=== PATIENT | female | born 1990 | race Caucasian/White ===

== ENCOUNTER 2017-03-02 12:00 | Outpatient (CLI) | payer OTHER ==
[~2017-03-02] VITALS: Ht 152.4 cm; Wt 59.1 kg
[2017-03-02 12:20] VITALS: BP 111/74; PULSE 64; TEMP 98.1
[2017-03-02 12:26] VITALS: BP 111/74; PULSE 64; TEMP 98.1
[2017-03-02 13:43] VITALS: BP 108/71; PULSE 67
== END 2017-03-02 13:48 | disposition home or self-care (01) ==
LOC: LDRO 12:00
DX: Z34.03 Encounter for supervision of normal first pregnancy, third trimester (principal); Z3A.40 40 weeks gestation of pregnancy

== ENCOUNTER 2017-03-02 23:57 | Inpatient (IN) | payer OTHER ==
[~2017-03-02] VITALS: Ht 152.4 cm; Wt 59.5 kg
[2017-03-03] VITALS (44 sets, daily range): BP systolic 97–149; BP diastolic 55–109; PULSE 67–126; TEMP 97.4–99.1
[2017-03-03 01:05] LABS: BASO % 0.2 % (0.0-2.0); EOS % 0.1 % (0-4.0); GRAN # 13.6 (1.4-6.5); GRAN % 85.5 % (42.2-75.2); HEMATOCRIT 40.1 % (37.0-47.0); LYMPH # 1.5 (1.2-3.4); LYMPH % 9.5 % (20.0-51.0); MEAN CELL VOLUME 93 fl (80.0-100.0); MEAN CORPUSCULAR HEMOGLOBIN 32 pg (27.0-31.0); MEAN CORPUSCULAR HGB CONC 35 g/dl (33.0-37.0); MEAN PLATELET VOLUME 11.6 fl (7.4-10.4); MONO # 0.7 (0.1-0.6); MONO % 4.3 % (1.7-9.3); PLATELET COUNT 201 K/mm3 (130-400); RED BLOOD COUNT 4.33 M/mm3 (4.10-5.30); WHITE BLOOD COUNT 15.9 K/mm3 (4.8-10.8)
[2017-03-04 07:00] VITALS: BP 93/53; PULSE 68
[2017-03-04] MEDS ORDERED: IBU800 M1 PO (09:15)
[2017-03-04] MEDS ORDERED: PERCOCET 325 MG1 TA2 PO (09:15)
[2017-03-04 17:26] VITALS: BP 106/69; PULSE 70
[2017-03-04 20:30] VITALS: BP 104/67; PULSE 80; TEMP 98.2
[2017-03-05 06:50] VITALS: BP 107/74; PULSE 70
== END 2017-03-05 12:05 | disposition home or self-care (01) | DRG 775 ==
LOC: LDRO 23:57 → OB 03-03 00:30 → LDR 03-03 00:30 → OB 03-03 11:54
PROVIDERS: Obstetrics & Gynecology
PROC: 10E0XZZ Delivery of Products of Conception, External Approach (ICD-10-PCS; principal; 2017-03-03)
PROC: 0KQM0ZZ Repair Perineum Muscle, Open Approach (ICD-10-PCS; 2017-03-03)
DX: O48.0 Post-term pregnancy (principal); O99.824 Streptococcus B carrier state complicating childbirth; O26.843 Uterine size-date discrepancy, third trimester; O70.1 Second degree perineal laceration during delivery; Z3A.40 40 weeks gestation of pregnancy; Z37.0 Single live birth
CPT/HCPCS: J2540; J2590; J2795; J7120

== ENCOUNTER 2018-11-20 19:10 | Emergency (ER) | payer OTHER ==
[~2018-11-20 19:10] MED LIST: IBU800 M1 PO; PERCOCET 325 MG1 TA2 PO
[2018-11-20 19:27] VITALS: BP 129/87; TEMP 98.2
[2018-11-20] MEDS ORDERED: PRENATAL FORMU1 EAC3 PO (19:42)
[2018-11-20 19:56] LABS: COLLECTION METHOD CLEAN CATCH
[2018-11-20 20:01] LABS: PH 7 (5-8); SQUAMOUS EPITHELIAL None Seen /hpf; URINE APPEARANCE Clear; URINE BACTERIA None Seen /hpf; URINE BILIRUBIN Negative (NEGATIVE); URINE BLOOD 2+ (NEGATIVE); URINE COLOR Colorless; URINE GLUCOSE Negative (NEGATIVE); URINE KETONE Negative (NEGATIVE); URINE LEUKOCYTE ESTERASE Negative (NEGATIVE); URINE NITRATE Negative (NEGATIVE); URINE PROTEIN(semi-quant) Negative (NEGATIVE); URINE RBC 0-2 /hpf; URINE UROBILINOGEN Negative (NEGATIVE)
[2018-11-20 20:43] LABS: BASO % 0.5 % (0.0-2.0); EOS # 0.2 (0.0-0.7); EOS % 2.3 % (0-4.0); GRAN # 3.5 (1.4-6.5); GRAN % 45.4 % (42.2-75.2); HEMATOCRIT 38.5 % (37.0-47.0); HEMOGLOBIN 13.4 g/dl (12.5-16.0); LYMPH # 3.4 (1.2-3.4); LYMPH % 43.7 % (20.0-51.0); MEAN CELL VOLUME 90 fl (80.0-100.0); MEAN CORPUSCULAR HEMOGLOBIN 31 pg (27.0-31.0); MEAN CORPUSCULAR HGB CONC 35 g/dl (33.0-37.0); MEAN PLATELET VOLUME 10.5 fl (7.4-10.4); MONO # 0.6 (0.1-0.6); PLATELET COUNT 305 K/mm3 (130-400); RED BLOOD COUNT 4.28 M/mm3 (4.10-5.30); REDCELL DISTRIBUTION WIDTH-CV 12.6 % (11.5-14.5)
[2018-11-20 20:55] LABS: ALBUMIN 4.2 gm/dL (3.5-5.0); BILIRUBIN,TOTAL 0.6 mg/dL (0.0-1.0); CALCIUM 9.5 mg/dL (8.4-10.2); CREATININE, serum 0.31 (0.52-1.25); POTASSIUM 3.7 mmol/L (3.4-5.0); TOTAL PROTEIN 7.5 gm/dL (6.4-8.2)
[2018-11-20 22:05] VITALS: PULSE 74
== END 2018-11-20 22:05 | disposition home or self-care (01) ==
LOC: COL.ER 19:10
PROVIDERS: Nurse Practitioner
DX: O20.0 Threatened abortion (principal); Z3A.12 12 weeks gestation of pregnancy

== ENCOUNTER → 2018-11-21 | Outpatient (CLI) | payer OTHER ==
[~2018-11-21] MED LIST changes: +PRENATAL FORMU1 EAC3 PO
== END ==
LOC: COL.RAD 08:50
DX: O20.9 Hemorrhage in early pregnancy, unspecified (principal); Z3A.01 Less than 8 weeks gestation of pregnancy

== ENCOUNTER → 2020-01-03 | Outpatient (CLI) | payer OTHER ==
[~2020-01-03] MED LIST changes: +IBU600 MG PO
== END | disposition still patient (30) ==
LOC: ZCOL.LAB
DX: Z20.828 Contact with and (suspected) exposure to other viral communicable diseases (principal)

== ENCOUNTER 2020-01-04 07:05 | Inpatient (IN) | payer OTHER ==
[~2020-01-04] VITALS: Ht 152.4 cm; Wt 66.8 kg
[2020-01-04] VITALS (15 sets, daily range): BP systolic 91–120; BP diastolic 50–89; PULSE 67–102; TEMP 98–98.1
--- NOTE | 2020-01-04 07:00 | NUR ---
PT PRESENTS TO LABOR AND DELIVERY. STATES CONTRACTIONS STARTED YESTERDAY AT 5PM AND HAVE BEEN WORSE SINCE 0230. WATER BROKE ON HER WAY INTO THE HOSPITAL. SVE BY RYDER WITH THICK MECONIUM. PT CRYING BECAUSE SHE WANTS HER EPIDURAL. IV STARTED IN LEFT HAND BY RYDER AND LR INFUSING WITHOUT DIFFICULTY. PT IS GBS POSITIVE AND HAS NKDA-PEN G 5,000,000 UNITS STARTED VIA IV AT 0654. ASSESSMENT STARTED. CONSENT FOR EPIDURAL SIGNED.
[~2020-01-04 07:05] MED LIST changes: -IBU600 MG PO
--- NOTE | 2020-01-04 07:30 | NUR ---
[address] FONTENOT TO LET HER KNOW THE PT IS HERE, SVE, THICK MECONIUM, GBS POSITIVE AND PEN G STARTED. ALSO CALLED Deni LAYNE CRNA, AT 0702 AND HE IS ON HIS WAY FOR EPIDURAL PLACEMENT 07-LINDSEY LUDWIG, HERE FOR EPIDURAL PLACEMENT. PT STRUGGLING TO BREATHE THROUGH CONTRACTIONS. REPOSITIONED PT SITTING UP FOR EPIDURAL 07-SINGLE SHOT EPIDURAL WITH NO ABNORMAL SYMPTOMS OBSERVED OR REPORTED 726-PT SITTING IN BED AFTER LABEL SEWER DONE TAPING EPIDURAL SITE AND SHE STATES SHE IS FEELING PRESSURE. PT GRIMACING AND WHEN ASKED WHAT SHE IS DOING SHE SAYS SHE IS PUSHING. REPOSITIONED PT QUICKLY LYING DOWN 07-SVE COMPLETE/100/+2 AND PT IS BEARING DOWN 07-DR ROJO IN ROOM AND PREPS FOR DELIVERY
--- NOTE | 2020-01-04 07:36 | NUR ---
DR ROJO AT BEDSIDE. PT PUSHING STARTED AT 0734. OF FEMALE AT 0736.
--- NOTE | 2020-01-04 07:40 | NUR ---
SPONTANEOUS DELIVERY OF PLACENTA AT [address] ROJO. PITOCIN STARTED AT 333ML/HR AFTER DELIVERY OF PLACENTA. FUNDUS FIRM WITH MINIMAL BLEEDING OBSERVED. DR ROJO REPAIRING SECOND DEGREE PERINEAL TEAR.
[2020-01-04 08:04] LABS: BASO % 0.3 % (0.0-2.0); EOS % 0.2 % (0-4.0); GRAN # 11.2 (1.4-6.5); GRAN % 82.6 % (42.2-75.2); HEMATOCRIT 40.9 % (37.0-47.0); LYMPH # 1.7 (1.2-3.4); LYMPH % 12.5 % (20.0-51.0); MEAN CELL VOLUME 94 fl (80.0-100.0); MEAN CORPUSCULAR HEMOGLOBIN 32 pg (27.0-31.0); MEAN CORPUSCULAR HGB CONC 34 g/dl (33.0-37.0); MEAN PLATELET VOLUME 11.4 fl (7.4-10.4); MONO # 0.5 (0.1-0.6); MONO % 3.8 % (1.7-9.3); PLATELET COUNT 250 K/mm3 (130-400); RED BLOOD COUNT 4.37 M/mm3 (4.10-5.30); REDCELL DISTRIBUTION WIDTH-CV 12.9 % (11.5-14.5)
--- NOTE | 2020-01-04 08:10 | NUR ---
PT RESTING IN BED HOLDING BABY. DENIES PAIN. CANNOT MOVE LEGS.
--- NOTE | 2020-01-04 09:10 | NUR ---
PT STARTING TO BE ABLE TO FEEL HER TOES BUT CANNOT LIFT HER LEGS YET. FUNDUS FIRM WITH MINIMAL BLEEDING.
--- NOTE | 2020-01-04 10:35 | NUR ---
RIGHT LEG STILL NUMB BUT FEELING IS RETURNING. FUNDUS FIRM WITH MINIMAL BLEEDING.
--- NOTE | 2020-01-04 11:45 | NUR ---
PT TRANSFERRED TO ROOM. ORIENTED TO PLAN OF CARE. ASSESSMENT COMPLETED. ORIENTED TO ROOM WELL.
--- NOTE | 2020-01-04 18:50 | NUR ---
Report recieved. Resting in bed attempting to breastfeed. Updated whiteboard and reviewed POC. Denied questions or concerns.
[2020-01-05 07:30] VITALS: BP 96/65; PULSE 74; TEMP 97.7
--- NOTE | 2020-01-05 09:11 | NUR ---
Initial visit; Parents thanked Tugboat Captain for offering congratulations and blessings for the of their daughter. Tugboat Captain thanked family for choosing [facility].
[2020-01-05] MEDS ORDERED: IBU600 MG PO (13:12)
[2020-01-05 16:36] VITALS: BP 94/65; PULSE 68; TEMP 97.7
[2020-01-05 20:45] VITALS: BP 102/74; PULSE 73; TEMP 98.2
[2020-01-06 07:00] VITALS: BP 100/62; PULSE 76; TEMP 98.1
== END 2020-01-06 13:32 | disposition home or self-care (01) | DRG 807 ==
LOC: LDRO 07:05 → OB 07:15 → LDR 07:15 → OB 10:30
PROVIDERS: Obstetrics & Gynecology; ADMIT Student in an Organized Health Care Education/Training Program
PROC: 10E0XZZ Delivery of Products of Conception, External Approach (ICD-10-PCS; principal; 2020-01-04)
PROC: 0KQM0ZZ Repair Perineum Muscle, Open Approach (ICD-10-PCS; 2020-01-04)
DX: O48.0 Post-term pregnancy (principal); Z37.0 Single live birth; Z3A.40 40 weeks gestation of pregnancy; O77.0 Labor and delivery complicated by meconium in amniotic fluid; O70.1 Second degree perineal laceration during delivery
CPT/HCPCS: J2540; J2590; J2795; J7120